=== PATIENT | male | born 1980 | race Caucasian/White ===

== ENCOUNTER → 2018-09-05 06:53 | Outpatient (CLI) | payer MEDICARE, MEDICAID, SELFPAY ==
--- NOTE | 2018-09-05 06:55 | NM_ITS ---
CARDIOLITE SPECT MYOCARDIAL PERFUSION SCAN, REST AND STRESS: EXERCISE STRESS [facility] REVIEW QGS EF AND WALL MOTION EVALUATION: QPS - PERFUSION EVALUATION HISTORY: Chest pain, SOB, HTN, CAD, Hx of PA, DM DOSE: 9.49 mCi technetium 99m mibi intravenously at rest followed by 31.9 mCi technetium 99m mibi following the intravenous ministration of 0.4 mg of Lexiscan. Resting blood pressure is 157/87. Stress blood pressure 134/88. FINDINGS: Ejection fraction is calculated to be 42%. Stress images reveal decreased activity in the apex septum and inferior wall. Rest images reveal no significant change. Gated images calculated ejection fraction of 42% with inferior apical hypokinesis. IMPRESSION: Clinical correlation is advised. This is an abnormal high risk stress test with extensive inferior apical and septal nearly complete transmural myocardial infarction with no scintigraphic evidence of reversible ischemia. Reduced ejection fraction accompanied by regional wall motion abnormality
--- NOTE | 2018-09-05 07:51 | HMH.ITSHM ---
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 []METFORMIN LISINOPRIL ZETIA INSULIN TRULICITY PLAVIX
== END ==
PROVIDERS: PCP Physician Assistant; Visit Provider Internal Medicine
DX: E11.9 Type 2 diabetes mellitus without complications (principal); I11.9 Hypertensive heart disease without heart failure; I25.10 Atherosclerotic heart disease of native coronary artery without angina pectoris; J44.9 Chronic obstructive pulmonary disease, unspecified; R06.09 Other forms of dyspnea; R42 Dizziness and giddiness; R94.31 Abnormal electrocardiogram [ECG] [EKG]; Z95.5 Presence of coronary angioplasty implant and graft; E78.49 Other hyperlipidemia
CPT/HCPCS: 78452; 93017; A9502; J2785

== ENCOUNTER → 2019-01-08 12:22 | Outpatient (CLI) | payer MEDICARE, MEDICAID, SELFPAY ==
--- NOTE | 2019-01-08 12:25 | CA_ITS ---
PROCEDURE: 2-D M-mode and color Doppler study INDICATIONS FOR THE TEST: Chest pain COPD Heart Murmur Tobacco Smoking Palpitations Fatigue Syncope Edema Hypertension+Diabetes Mellitus Rheumatic Fever SOB+HANEY Obesity Hyperlipidemia + Family History HD Additional History STENTS, LOOP RECORDER PATIENT INFORMATION HEIGHT: 72 WEIGHT:243 GENDER: Male B/P:140/81 2-D/M-MODE INTERPRETATION: 2-D MEASUREMENTS OBSERVED VALUES IN CMS Right Ventricular Dimension (RVDd) 1.9 Interventricular Septum (Thickness)(IVsd) 1.5 Left Ventricular Internal Dimensions(LVIDd) 5.2 Left Ventricular Posterior Wall (Thickness)(LVPWd) 1.0 Aortic Root 3.8 Aortic Cusp Separation 2.5 Left Atrial Dimensions (LAD) 4.1 2D 1. Left atrium is mildly enlarged, left ventricle is normal size, mild concentric left ventricular hypertrophy, visually estimated ejection fraction of 55% with no regional wall motion abnormality. 2. The right atrium and right ventricle are normal size and contractility. 3. The aortic valve is minimally thickened and fibrosed. 4. The mitral and tricuspid valvular grossly normal. 5. The pulmonic valve is poorly visualized. 6. No significant pericardial effusion noted. DOPPLER INTERROGATION: Doppler interrogation of the aortic, mitral and tricuspid valvular presence of mild mitral and tricuspid regurgitation, tricuspid regurgitation jet velocity is inadequate for calculation of the right ventricular systolic pressure, grade 1 diastolic dysfunction seen without tissue Doppler evidence of raised left atrial pressure. CONCLUSION: 1. Mildly enlarged left atrium, normal left ventricular size, mild concentric left ventricular hypertrophy, visually estimated ejection fraction 55% with no regional wall motion abnormality, grade 1 diastolic dysfunction seen without tissue Doppler evidence of raised left atrial pressure. 2. Mild mitral and tricuspid regurgitation 3. No significant pericardial effusion noted. :
== END ==
PROVIDERS: PCP Physician Assistant; Visit Provider Internal Medicine
DX: R94.31 Abnormal electrocardiogram [ECG] [EKG] (principal)
CPT/HCPCS: 93306

== ENCOUNTER → 2021-04-08 13:49 | Outpatient (CLI) | payer MEDICARE, MEDICAID, SELFPAY ==
--- NOTE | 2021-04-08 13:55 | XR_ITS ---
PROCEDURE: XR CHEST 2V CLINICAL HISTORY: PRECORDIAL PAIN COMPARISON: CR CXR1 CHEST-PORTABLE from 04/29/2016 FINDINGS: The cardiomediastinal silhouette and pulmonary vascularity are within normal limits. The lungs are clear without infiltrates, suspicious nodules, or pleural effusions. No acute bony abnormalities. Loop recorder overlying left heart again noted. IMPRESSION: No acute findings. Dictated by: Arvind Bolton MD 04/08/2021 14:42 Arvind Bolton MD in OV 04/08/2021 14:42
== END ==
PROVIDERS: PCP Nurse Practitioner Family; Visit Provider Nurse Practitioner Family
DX: R07.2 Precordial pain (principal)
CPT/HCPCS: 71046

== ENCOUNTER → 2021-08-19 10:35 | Outpatient (CLI) | payer MEDICARE, MEDICAID, SELFPAY ==
--- NOTE | 2021-08-19 10:37 | US_ITS ---
APPROVED REPORT Exam Type: Ankle to Brachial Index Procurement Agent: Ashley Barroso RCS, RVS Indications Claudication: Rest Pain: History of Smoking CAD Risk Factors Diabetes Pressures/Indices Right Indices Left Indices Brachial 126.00 mmHg Brachial 132.00 mmHg Low Thigh 126.00 mmHg 0.95 Low Thigh 131.00 mmHg 0.99 Calf 133.00 mmHg 1.01 Calf 142.00 mmHg 1.08 Ankle(PT) 145.00 mmHg 1.10 Ankle(PT) 145.00 mmHg 1.10 Ankle(DP) 144.00 mmHg 1.09 Ankle(DP) 139.00 mmHg 1.05 Digit 114.00 mmHg 0.86 Digit 112.00 mmHg 0.85 Findings RT DORON=1.10 LT DORON=1.10 RT TPI=0.86 LT TPI=0.85 Normal waveforms and pulses observed bilaterally. Conclusion RT DORON=1.10 LT DORON=1.10 RT TPI=0.86 LT TPI=0.85 Normal waveforms and pulses observed bilaterally. Electronically signed by : Jillian Hou MD 08/21/2021 17:05:11
--- NOTE | 2021-08-19 11:26 | NM_ITS ---
APPROVED REPORT Exam: Nuclear Stress Test Indication: angina..short of breath Patient Location: Outpatient Stress Tech: Terrie Valenzuela [place] Tech:Celine FernandezROSITA RT(R)(N) Ht: 6 ft 0 in Wt: 240 lbs HR: 67 bpm BP: 135/81 mmHg BSA: 2.30 m2 BMI: 67.0 History: angina..short of breath Procedure: Patient received a 0.4 mg of intravenous Lexiscan, resting heart rate 67 bpm, resting blood pressure 135/81 mmHg, with Lexiscan maximum heart rate achived was 78 bpm which is 85 % of the maximum predicted heart rate and blood pressure was 127/82 mmHg. With Lexiscan, patient denied any complaint of chest pain. pt unable to lay on belly Cardiac Stress and Resting SPECT Images: Cardiac Stress and Resting SPECT images were obtained using technetium 99m Myoview 31.1 mCi stress and 10.43 mCi at rest. Ef low at 49%. Apical hypokinesia Fixed defect involves the apex c/w an area of infarction No reversible defects evident Please correlate with ECG findings Conclusion: Ef low at 49%. Apical hypokinesia Fixed defect involves the apex c/w an area of infarction No reversible defects evident Please correlate with ECG findings Electronically signed by : Liam Russell MD 08/25/2021 15:43:03
--- NOTE | 2021-08-19 13:54 | HMH.ITSHM ---
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 []NITRO METFORMIN INSULIN GLIPIZIDE EZETIMIBE CLOPIDOGREL BISOPROLOL ASA
--- NOTE | 2021-08-19 14:37 | CA_ITS ---
APPROVED REPORT Exam: Pharmacologic Technologist: Terrie Valenzuela, Ht: 6 ft 0 in Wt: 242 lbs BSA: 2.31 m2 HR: 67 bpm BP: 135/81 mmHg Medical History Medications: Aspirin,,,,, Metformin,,,,, CloPIdogrel,,,,, BisOPROLOL Fumarate,,,,, LanTUS,,,,, Nitroglycerin,,,,, Novalog,,,,, Ezetimibe,,,,, GIipizide,,,,, Stress Test Details Test: LEXISCAN HR Resting HR: 67 bpm Max Heart Rate (APMHR): 179.820136 bpm Max HR Achieved: 91 bpm Target HR (85% APMHR): 152.016095 bpm % of APMHR: 50.84 Recovery HR: 71 bpm BP Resting BP: 135/81 mmHg Max BP: 135/81 mmHg Recovery BP: 127.0/86.0 mmHg ECG Resting ECG: NSR, old anteroseptal [place], low voltage QRS Clinical Exercise duration: 04:00 min Highest Stage Achieved: Exercise capacity: 1.0 METs Stress ECG Conclusion Symptoms: Very mild SOA and stomach discomfort. No CP. Arrhythmias/Ectopy: None ST-T Changes: No significant changes. Conclusion: Unremarkable Lexiscan stress. Myoview images reported separately. Test Summary REST . . . . . . . Resting REST 03:13 . . 67 . 135/ 81 . . Stage 1 . . . . . . . Cardiolite injected Stage 1 01:00 . . 90 . . . . Stage 2 01:00 . . 73 . 127/ 82 . . Stage 3 01:00 . . 72 . 125/ 80 . . Stage 4 01:00 . . 71 . 124/ 81 . Stop exercise at 04:00 RECOVERY 01:00 . . 69 . 123/ 88 . . RECOVERY 02:00 . . 73 . 123/ 88 . . RECOVERY 03:00 . . 71 . 127/ 86 . . RECOVERY 03:19 . . 70 . 127/ 86 . . Electronically signed by : David Isbell MD 08/21/2021 14:26:37
== END ==
PROVIDERS: PCP Nurse Practitioner Family; Visit Provider Nurse Practitioner Family
DX: E11.9 Type 2 diabetes mellitus without complications (principal); E78.5 Hyperlipidemia, unspecified; I11.9 Hypertensive heart disease without heart failure; I73.9 Peripheral vascular disease, unspecified; J44.9 Chronic obstructive pulmonary disease, unspecified; Z95.5 Presence of coronary angioplasty implant and graft; Z79.4 Long term (current) use of insulin; I20.8 Other forms of angina pectoris; R06.02 Shortness of breath
CPT/HCPCS: 78452; 93017; 93306; 93923; A9502; J2785

== ENCOUNTER → 2021-08-26 12:35 | Outpatient (CLI) | payer MEDICARE, MEDICAID, SELFPAY ==
[2021-08-26 13:07] LABS: Basophils # 0.1 K/mm3 (0-0.2); Basophils % 1.4 % (0.1-2.0); Eosinophils # 0.1 K/mm3 (0.0-0.4); Eosinophils % 1.7 % (0.1-12.0); Hematocrit 50.5 % (42.0-52.0); Hemoglobin 17.3 g/dL (14.1-18.0); Lymphocytes # 2.7 K/mm3 (0.7-4.5); Lymphocytes % 34.4 % (10-50); Mean Corpuscular HGB Conc 34.3 g/dL (31.8-35.4); Mean Corpuscular Hemoglobin 31.4 pg (27.0-31.2); Mean Corpuscular Volume 91.7 fl (80-94); Mean Platelet Volume 8.3 fl (7.4-10.4); Monocytes # 0.4 K/mm3 (0.1-1.0); Monocytes % 4.6 % (1.7-9.3); Neutrophils # 4.6 K/mm3 (1.8-7.8); Neutrophils % 57.9 % (37.0-80.0); Platelet Count 360 K/mm3 (142-424); Red Blood Count 5.51 M/mm3 (4.60-6.20); Red Cell Distribution Width 13.1 % (11.5-17.5); White Blood Count 7.9 K/mm3 (4.8-10.8)
[2021-08-26 14:54] LABS: Chloride 99 mmol/L (98-107); Sodium 136 mmol/L (136-145)
[2021-08-26 14:57] LABS: Blood Urea Nitrogen 11 mg/dl (9-20); Carbon Dioxide 25 mmol/L (22.0-30.0); Estimated Glomerular Filt Rate 124 ml/min (>60); GFR (African American) 150 ML/MIN (>60); Glucose 371 mg/dl (74-100)
== END ==
PROVIDERS: Visit Provider Urology
DX: I65.29 Occlusion and stenosis of unspecified carotid artery (principal); I11.9 Hypertensive heart disease without heart failure; I25.10 Atherosclerotic heart disease of native coronary artery without angina pectoris; R07.9 Chest pain, unspecified; Z01.812 Encounter for preprocedural laboratory examination; Z11.52 Encounter for screening for COVID-19
CPT/HCPCS: 36415; 80048; 85025; C9803; U0003; U0005

== ENCOUNTER 2021-08-27 08:49 | Day surgery (SDC) | payer MEDICARE, MEDICAID, SELFPAY ==
[2021-08-27] VITALS (11 sets, daily range): BP systolic 109–144; BP diastolic 64–91; PULSE 61–75; RESP 18–20; TEMP 36.3; O2SAT 94–98; BMI 33.5
--- NOTE | 2021-08-27 07:02 | IR_ITS ---
APPROVED REPORT Patient Location: Outpatient Meat Cutting Teacher: ROSITA Reyes RT (R) PROCEDURES Left heart catheterization Left ventriculogram Selective coronary angiogram INDICATION Known multivessel coronary disease, Poorly controlled diabetes with a hemoglobin A1c in excess of 12, Symptoms suggestive of angina pectoris, Abnormal Myoview Informed consent was obtained prior to the procedure. COMPLICATIONS None Estimated Blood Loss: less than 10ml TECHNIQUE One percent lidocaine used to anesthetize the right anterior aspect of the wrist. The right radial artery was accessed via the Seldinger technique. A 6 Bulgarian sheath was placed in the right radial artery. 2.5 mg of verapamil, 800 mcg of nitroglycerin, 1mg Lidocaine and 5000 U Heparin were given through the arterial sheath. The trap catheter and a 6 Bulgarian JL 3 guide catheter were also used to perform left heart catheterization, left ventriculogram and selective coronary angiogram. At the end of the procedure the sheath was removed good hemostasis was achieved using Traclet band, patient was transferred to the postop holding area in stable condition. ANGIOGRAPHIC RESULTS The left main artery Normal The left anterior descending artery Has a stent in the proximal segment which is widely patent with mild concentric 30% proximal in-stent restenosis with remaining LAD having diffuse 20% luminal irregularities. The circumflex artery Gives rise to a moderate sized ramus intermedius which has an ostial proximal 80% concentric stenosis and a 2 mm vessel. This originates immediately in between the LAD and a second moderate to large ramus intermedius branch. The second ramus intermedius has a stent in the ostial proximal segment which is widely patent with minimal in-stent restenosis approximately 10 to 20%. The circumflex artery itself is nondominant is a small vessel and patent. The right coronary artery Is a dominant vessel and proximally occluded. The distal segment fills via left to right collaterals The SUN ventriculogram reveals Preserved at 60% The left ventricular end-diastolic pressure 10 mmHg IMPRESSION Coronary artery disease as described above Preserved ejection fraction Normal left ventricular end-diastolic pressure PLAN 1. Continue medical management with aggressive risk factor modification with special attention being paid to diabetes Electronically signed by : David Isbell MD 08/27/2021 11:18:52
== END 2021-08-27 13:57 | disposition home or self-care (01) ==
LOC: CATHLAB 08:50
PROVIDERS: PCP Nurse Practitioner; Visit Provider Internal Medicine
DX: I25.10 Atherosclerotic heart disease of native coronary artery without angina pectoris; R93.1 Abnormal findings on diagnostic imaging of heart and coronary circulation; E11.65 Type 2 diabetes mellitus with hyperglycemia; I65.29 Occlusion and stenosis of unspecified carotid artery; E11.51 Type 2 diabetes mellitus with diabetic peripheral angiopathy without gangrene; I10 Essential (primary) hypertension; T82.855A Stenosis of coronary artery stent, initial encounter; F17.200 Nicotine dependence, unspecified, uncomplicated; E78.5 Hyperlipidemia, unspecified; I25.2 Old myocardial infarction; Y83.1 Surgical operation with implant of artificial internal device as the cause of abnormal reaction of the patient, or of later complication, without mention of misadventure at the time of the procedure; Z79.4 Long term (current) use of insulin
CPT/HCPCS: 93458; 99152; C1725; C1769; J1644; Q9967

== ENCOUNTER 2023-02-19 20:05 | Emergency (ER) | payer MEDICARE, MEDICAID, SELFPAY ==
[2023-02-19 20:06] VITALS: BP 168/89; PULSE 96; RESP 16; TEMP 36.5; O2SAT 98; BMI 31.6
--- NOTE | 2023-02-19 20:25 | ECG_ITS ---
APPROVED REPORT Exam: Resting ECG HR:93 bpm ECG Measurements Heart Rate 93 AXES NJ 168 P 66 QRSd 86 QRS 71 QT 345 T 62 QTc 396 Conclusion SINUS RHYTHM Poor r wave progression with isolated Q in III. Old findings ABNORMAL ECG UNCONFIRMED REPORT Electronically signed by : Francisco Rubin MD 02/20/2023 13:38:36
--- NOTE | 2023-02-19 20:26 | XR_ITS ---
PROCEDURE INFORMATION: Exam: XR Chest Exam date and time: 02/19/2023 8:42 PM Age: 42 years old Clinical indication: Shortness of breath; Additional info: SOB TECHNIQUE: Imaging protocol: Radiologic exam of the chest. Views: 1 view. COMPARISON: CR XR CHEST 2V 04/08/2021 1:58 PM FINDINGS: Lungs: No consolidation. Pleural spaces: No pneumothorax. Heart/Mediastinum: No cardiomegaly. Bones/joints: No acute abnormality. IMPRESSION: No acute findings.
[2023-02-19 20:29] LABS: Coronavirus 19, PCR Not Detected (NotDetected); Influenza A, PCR Not Detected (NotDetected); Influenza B, PCR Not Detected (NotDetected)
--- NOTE | 2023-02-19 20:29 | PC.NURSE ---
RAD at for CXR
[2023-02-19 20:30] VITALS: BP 139/81; PULSE 99; O2SAT 98
--- NOTE | 2023-02-19 20:30 | HMH.EDGENADL ---
Discharge Plan Disposition Patient Disposition: Home, Self-Care Condition: Good Chief Complaint: Shortness of Breath/Dyspnea Prescriptions Prescriptions: No Action insulin glargine [Lantus U-100 Insulin] 100 unit/mL solution 50 unit SUB-Q BID insulin aspart U-100 [Novolog U-100 Insulin aspart] 100 unit/mL solution 10 unit SUB-Q QPM metformin 1,000 mg tablet 1,000 mg PO BID glipizide [Glucotrol] 10 mg tablet 10 mg PO DAILY nitroglycerin 0.4 mg tablet, sublingual 0.4 mg SUBLINGUAL Q5M PRN (Reason: chest pain) Qty: 25 3RF Rx Instructions: until response; do not exceed 3 doses per episode gabapentin 300 mg capsule 300 mg PO HS fenofibrate 160 mg tablet 160 mg PO DAILY bisoprolol fumarate 5 mg tablet 5 mg PO DAILY Qty: 30 5RF clopidogrel 75 mg tablet 75 mg PO QDAY Qty: 90 3RF Nexlizet 180-10 mg tablet 1 tab PO DAILY Qty: 30 2RF Referrals Follow up/Referrals: Gaviota Robbins [Primary Care Provider] - See instructions Clinical Impressions Clinical Impression: Chronic hyperglycemia Discharge ED Provider: Florencio Elmore General Adult HPI General Chief complaint: Shortness of Breath/Dyspnea Stated complaint: SOA , bodyaches, Possible low oxygen Time Seen by Provider: 02/19/23 20:18 Mode of Arrival: Ambulatory Source of Information: Patient Limitations: No Limitations Description of Symptoms (Recalled from ER Triage Doc. by RN): Pt arrives to ED with c/o sob for 2-3 days. denies any pain besdies his baseline neuropathy tingling . Pt o2 sats in 90's on room air. Pt has hx of COPD. History of Present Illness HPI narrative: 42yo M presents to the ER secondary to shortness of breath for the past 2 to 3 days. Denies chest pain. Reports his O2 saturation has been dropping at home. Reports O2 sat as low as 92%. Quit smoking 5 years ago. Has a history of COPD and CAD. No recent fever. Related Data Home Medications Medication Instructions Recorded Confirmed insulin aspart U-100 100 unit/mL 10 unit SUB-Q QPM Diabetes 11/07/17 02/03/23 subcutaneous solution (Novolog U-100 Insulin aspart) insulin glargine 100 unit/mL 50 unit SUB-Q BID Diabetes 11/07/17 02/03/23 subcutaneous solution (Lantus U-100 Insulin) metformin 1,000 mg tablet 1,000 mg PO BID Diabetes 06/27/18 02/03/23 glipizide 10 mg tablet (Glucotrol) 10 mg PO DAILY Diabetes 12/26/18 02/03/23 fenofibrate 160 mg tablet 160 mg PO DAILY 02/03/23 02/03/23 gabapentin 300 mg capsule 300 mg PO HS 02/03/23 02/03/23 Previous Rx's Medication Instructions Recorded nitroglycerin 0.4 mg sublingual 0.4 mg sublingual Q5M PRN chest 12/25/19 tablet pain #25 tabs bempedoic acid 180 mg-ezetimibe 10 1 tab PO DAILY #30 tabs 02/03/23 mg tablet (Nexlizet) bisoprolol fumarate 5 mg tablet 5 mg PO DAILY blood pressure #30 02/03/23 tabs clopidogrel 75 mg tablet 75 mg PO QDAY heart #90 tabs 02/03/23 Allergies Allergy/AdvReac Type Severity Reaction Status Date / Time ramelteon [From Rozerem] Allergy Severe Trouble Verified 02/03/23 09:23 breathing morphine Allergy Unknown itching Verified 02/03/23 09:23 evolocumab AdvReac Mild myalgia Verified 02/03/23 09:23 [From Joe Christina] Lhckyod-WRR-AiA Reductase AdvReac Mild leg cramps Verified 02/03/23 09:23 Inhibitor [Qhnikec-Pia-Rwn Reductase Inhibitor] pregabalin [From Lyrica] AdvReac Verified 02/03/23 09:23 [facility] Disclaimer: The information contained in this section may have been updated after the patient was seen, as this information can be updated by other users. Medical History Carotid artery stenosis Social History Smoking Status: Former smoker second hand exposure: No alcohol intake: never substance use type: denies use current occupational status: unemployed Travel in the last 8 weeks: In
[2023-02-19 20:35] LABS: Basophils # 0.1 K/mm3 (0-0.2); Chloride 92 mmol/L (98-107); Eosinophils # 0.1 K/mm3 (0.0-0.4); Eosinophils % 1.2 % (0.1-12.0); Hematocrit 45.7 % (42.0-52.0); Hemoglobin 15.4 g/dL (14.1-18.0); Lymphocytes # 1.6 K/mm3 (0.7-4.5); Mean Corpuscular HGB Conc 33.7 g/dL (31.8-35.4); Mean Platelet Volume 8.5 fl (7.4-10.4); Monocytes # 0.3 K/mm3 (0.1-1.0); Monocytes % 4.8 % (1.7-9.3); Neutrophils # 4.4 K/mm3 (1.8-7.8); Neutrophils % 68.2 % (37.0-80.0); Platelet Count 289 K/mm3 (142-424); Potassium 3.8 mmoL/L (3.5-5.1); Red Blood Count 5.14 M/mm3 (4.60-6.20); Red Cell Distribution Width 13.3 % (11.5-17.5); Sodium 134 mmol/L (136-145); White Blood Count 6.4 K/mm3 (4.8-10.8)
[2023-02-19 20:37] LABS: Blood Urea Nitrogen 10 mg/dl (9-20); Creatinine Clearance Estimated 206 mL/min (50-200); Estimated Glomerular Filt Rate 124 ml/min (>60); GFR (African American) 150 ML/MIN (>60)
[2023-02-19 20:38] LABS: Alanine Aminotransferase 32 U/L (12-78); Albumin Level 4.5 g/dl (3.5-5.0); Albumin/Globulin Ratio 1.5 (1.1-1.8); Alkaline Phosphatase 102 U/L (38-126); Anion Gap 18.8 mEq/L (5-15); Aspartate Amino Transferase 27 U/L (17-59); Bilirubin,Total 0.6 mg/dl (0.2-1.3); Calcium 9.1 mg/dl (8.4-10.2); Carbon Dioxide 27 mmol/L (22.0-30.0); Glucose 311 mg/dl (74-100); Total Protein,Serum 7.5 g/dl (6.3-8.2)
[2023-02-19 20:51] LABS: Troponin I < 0.01 ng/ml (0.00-0.034)
[2023-02-19 20:53] LABS: NT Pro Brain Natriuretic Pep. < 20.0 pg/mL (0-125)
[2023-02-19 21:00] VITALS: BP 134/77; PULSE 90; O2SAT 98
--- NOTE | 2023-02-19 21:18 | PC.NURSE ---
Rounded on pt. No needs or complaints voiced at this time.
[2023-02-19 21:30] VITALS: BP 143/79; PULSE 91; RESP 16; O2SAT 98
[2023-02-19 21:53] VITALS: BP 140/70; PULSE 79; RESP 18; TEMP 36.7; O2SAT 97
== END 2023-02-19 22:08 | disposition home or self-care (01) ==
PROVIDERS: Emergency Provider Family Medicine; PCP Nurse Practitioner Family
DX: R06.02 Shortness of breath (principal); Z87.891 Personal history of nicotine dependence
CPT/HCPCS: 71045; 80053; 83880; 84484; 85025; 93005; 96360; 99285; C9803; U0003; U0005

== ENCOUNTER → 2023-08-30 07:41 | Outpatient (CLI) | payer MEDICARE, MEDICAID, SELFPAY ==
--- NOTE | 2023-08-30 07:42 | CA_ITS ---
APPROVED REPORT EXAM: Comprehensive 2D, Doppler, and color-flow Echocardiogram Backfiller: Leatha Horton RVT Ht: 6 ft 0 in Wt: 232lbs BSA: 2.27 BP: 173/86 mmHg Indications: CAD,PRE-OP,ABN EKG,DM,COPD,HTN,HLD 2D Dimensions LVOT 2.27 cm (M/F) 1.5-2.5 LA Volume 48.80 mL LA Volume Index 21.50 mL/m2 (M/F) 16-34 M-Mode Dimensions RVDd 2.88 cm (0.9-2.6) LA Diam 4.06 cm (1.9-4.0) LVDd 5.49 cm (3.5-5.7) Ao Diam 3.45 cm (2.0-3.7) LVDs 3.80 cm (3.5-5.7) IVSd 0.92 cm (0.6-1.1) PWd 0.52 cm (0.6-1.1) EF (Teich) 57.80% FS 30.80% EDV (Teich) 146.80 mL TAPSE 2.26 (<1.7) ESV (Teich) 62.00 mL LV Diastology E Decel Time 163.00 (160-240 msec) E/A Ratio 0.9 MED E' 7.80 (< 7 cm/sec) E'/MED E' Ratio 9.13 (>14) LAT E' 8.90 (<10 cm/sec) E/LAT E' Ratio 8.00 (>14) Aortic Valve LVOT Max 94.00 (70-110 cm/s) LVOT VTI 18.38 cm AoV Peak Gilberto. 100.00 (50-130 cm/s) AO Peak GR. 4.00 mmHg AO Mean GR. 2.00 (<5 mmHg) AO VTI 17.70 (18-25 cm) QUIANA (VTI) 4.20 (2.5-4.5 cm2) Mitral Valve MV E Max Gilberto. 71.00 (40-130 cm/s) MV A Velocity 80.00 (40-130 cm/s) E/A Ratio 0.89 MV Decel. Time 163.00 (160-240 ms) MV PHT 48.00 ms Pulmonary Valve PV Peak Velocity 79.00 (50-150 cm/s) Left Ventricle The left ventricle is normal size. The left ventricular systolic function is normal. The left ventricular ejection fraction is within the normal range. There is normal left ventricular wall thickness. There is normal LV segmental wall motion. The left ventricular diastolic function is normal. LVEF is 55%. Right Ventricle The right ventricle is normal size. The right ventricular systolic function is normal. Atria The left atrium size is normal. The right atrium size is normal. There is no Doppler evidence of interatrial shunt. Aortic Valve The aortic valve opens well. There is no aortic valvular stenosis. No aortic regurgitation is present. Mitral Valve The mitral valve is normal in structure. No evidence of mitral valve stenosis. Trace mitral regurgitation. Tricuspid Valve Leaflets are thin and pliable. Trace tricuspid regurgitation. There is insufficient TR jet to estimate RVSP. Pulmonic Valve The pulmonary valve is normal in structure. Trace pulmonic regurgitation. Great Vessels The aortic root is normal in size. The ascending aorta is normal in size. IVC is normal in size and collapses >50% with inspiration. Pericardium There is no pericardial effusion. Other Information Study Quality: Fair Conclusion Normal biventricular systolic function. No significant valvular stenosis or regurgitation. Electronically signed by : Luanne Wilson MD 08/31/2023 12:01:19
== END ==
PROVIDERS: PCP Nurse Practitioner Family; Visit Provider Physician Assistant
DX: E11.9 Type 2 diabetes mellitus without complications (principal); E78.5 Hyperlipidemia, unspecified; I11.9 Hypertensive heart disease without heart failure; I25.10 Atherosclerotic heart disease of native coronary artery without angina pectoris; R94.31 Abnormal electrocardiogram [ECG] [EKG]; Z95.5 Presence of coronary angioplasty implant and graft
CPT/HCPCS: 93306

== ENCOUNTER → 2023-09-09 10:23 | Outpatient (CLI) | payer MEDICARE, MEDICAID, SELFPAY ==
[2023-09-09 10:29] LABS: Microscopic, Urine URINE MICROSCOPIC (MICROSCOPIC)
[2023-09-09 10:53] LABS: Basophils # 0.1 K/mm3 (0-0.2); Eosinophils # 0.2 K/mm3 (0.0-0.4); Eosinophils % 2.9 % (0.1-12.0); Hematocrit 45.6 % (42.0-52.0); Lymphocytes # 2.8 K/mm3 (0.7-4.5); Lymphocytes % 36.9 % (10-50); Mean Corpuscular HGB Conc 35.1 g/dL (31.8-35.4); Mean Corpuscular Hemoglobin 30.4 pg (27.0-31.2); Mean Corpuscular Volume 86.7 fl (80-94); Mean Platelet Volume 8.1 fl (7.4-10.4); Monocytes # 0.3 K/mm3 (0.1-1.0); Monocytes % 3.4 % (1.7-9.3); Neutrophils # 4.2 K/mm3 (1.8-7.8); Neutrophils % 55.7 % (37.0-80.0); Platelet Count 289 K/mm3 (142-424); Red Blood Count 5.27 M/mm3 (4.60-6.20); Red Cell Distribution Width 13.1 % (11.5-17.5); White Blood Count 7.6 K/mm3 (4.8-10.8)
[2023-09-09 11:56] LABS: Anion Gap 16.5 mEq/L (5-15); Appearance,Urine CLEAR (Clear); Bilirubin,Urine Negative (Negative); Blood Urea Nitrogen 14 mg/dl (9-20); Blood, Urine Negative (Negative); Calcium 9.5 mg/dl (8.4-10.2); Carbon Dioxide 25 mmol/L (22.0-30.0); Chloride 94 mmol/L (98-107); Color,Urine YELLOW (Yellow); Estimated Glomerular Filt Rate 92 ml/min (>60); GFR (African American) 111 ML/MIN (>60); Glucose,Urine (UA) 3+ (Negative); Ketones,Urine Negative (Negative); Leukocyte Esterase,Urine Negative (Negative); Nitrate,Urine Negative (Negative); Potassium 4.5 mmoL/L (3.5-5.1); Protein,Urine Negative (Negative); Sodium 131 mmol/L (136-145); Urobilinogen,Urine 0.2 EU/dl (0.2)
[2023-09-09 12:06] LABS: Glucose 466 mg/dl (74-100)
[2023-09-09 13:44] LABS: Squamous Epithelial Cell,Urine Occasional #/hpf (0-5); WBC,Urine Occasional #/hpf (0-3)
[2023-09-09 13:45] LABS: Bacteria,Urine Trace /lpf
== END ==
PROVIDERS: PCP Nurse Practitioner Family; Visit Provider Surgery
DX: I25.10 Atherosclerotic heart disease of native coronary artery without angina pectoris (principal); K40.90 Unilateral inguinal hernia, without obstruction or gangrene, not specified as recurrent
CPT/HCPCS: 36415; 80048; 81001; 85025

== ENCOUNTER 2023-09-29 08:50 | Day surgery (SDC) | payer MEDICARE, MEDICAID, SELFPAY ==
[2023-09-27 14:28] VITALS: BMI 31.6
[2023-09-29] VITALS (8 sets, daily range): BP systolic 143–168; BP diastolic 78–99; PULSE 87–98; RESP 16–20; TEMP 36.1–36.7; O2SAT 94–98
[2023-09-29 09:47] LABS: POC Glucose,Bedside 325 (70-110)
[2023-09-29 10:34] LABS: POC Glucose,Bedside 291 (70-110)
--- NOTE | 2023-09-29 10:40 | P.PNANES_ITS ---
[facility] Disclaimer: The information contained in this section may have been updated after the patient was seen, as this information can be updated by other users. Medical History (Updated 09/29/23 @ 09:44 by Jan Kim RN) Carotid artery stenosis Diabetes mellitus Hyperlipidemia Hypertensive heart disease Implantable loop recorder present Implantable loop recorder present Surgical History (Updated 09/29/23 @ 09:44 by Jan Kim RN) H/O heart artery stent History of dental surgery Family History Other Family history of COPD (chronic obstructive pulmonary disease) Family history of myocardial infarction Social History Smoking Status: Former smoker tobacco type: smokeless tobacco second hand exposure: No alcohol intake: never substance use type: denies use current occupational status: unemployed Travel in the last 8 weeks: Inside the [facility] household members: spouse and children housing: house current occupational exposures/hazards: No caffeine: Yes [facility] Anesthesia Checklist Patient Identification Patient Identification: Arm Band Structural Data Admitted From: Home Planned Operative Procedure/s: Open Right Inguinal Hernia Repair Consent for Planned Operative Procedure(s) Verified: Yes Verified Documents: Surgical Consent and History and Physical NPO Status Verified Time NPO: 00:00 Additional verifications Anesthesia Reactions: No Hx Blood Transfusions: No Blood Transfusion Reaction: No Airway Assessment Mallampati Score:: Class II C-Spine Mobility Assessed: Yes TMJ Mobility Assessed: Yes Dentition: Edentulous Neurological Assessment Level of Consciousness: Awake and Alert Anesthesia Plan Anesthesia Risk discussed: Yes Anesthesia Plan: Verified ASA Class: III Anesthesia Type: General Preoperative Comments Pre-Operative Comments: Discussed blood glucose control and risk of infection with patient, especially with using mesh for hernia repair. Pt is no longer taking insulin. Pt verbalized understanding of risks and wishes to proceed with surgery.
--- NOTE | 2023-09-29 12:55 | EXP.OP.NOTE ---
Date of procedure: 09/29/23 Pre-op Diagnosis:: Right inguinal hernia Post-op Diagnosis:: Same Procedure performed:: Open right inguinal hernia repair Surgeon:: Ramiro Cole MD Anesthesia: LMA Estimated blood loss (mL): 15 Operative findings:: Large direct defect Operative note:: After informed consent was obtained the patient was taken to the operating room and placed in the supine position. General anesthesia was induced and his abdomen and groin/scrotum were prepped and draped in a sterile fashion. After infiltration with local anesthetic an oblique right groin incision was made. Electrocautery was utilized to transect through Yamilka's fascia to the level of the external aponeurosis. The external aponeurosis was opened sharply to the level of the external ring. The contents of the canal were carefully elevated. Significant soft tissue stranding noted. No definitive indirect defect noted. A fairly large direct defect was encountered. An extra-large PerFix plug was secured in position with interrupted Ethibond. The PerFix overlay was then secured to the shelving edge inferiorly and fascial margin superiorly with interrupted Ethibond. The external aponeurosis was reapproximated with running Vicryl suture. Yamilka's fascia was closed in the same manner. Skin was then reapproximated with running 3-0 Monocryl STRATAFIX. Sterile dressings were applied and the patient was transferred to recovery in stable condition. Condition: stable Disposition: PACU Specimens:: none Complications:: No immediate
--- NOTE | 2023-09-29 13:11 | P.PNANES_ITS ---
[facility] Anesthesia Record Part I Anesthesia Record I Intake, IV Amount: 1,250 Hydration: Adequate Estimated blood loss (mL): 25 Urine output (mL): 500 Blood Products used (#): none Blood Pressure: 148/90 SaO2: 94 Pulse Rate: 96 Airway Patency: Patent Respiratory Rate: 16 Temperature: 97.0 F Patient is:: Awake (Talking) and Stable Stable to PACU at:: 13:05
--- NOTE | 2023-09-29 13:11 | SUR.OPER ---
urinary catheter was removed at 1257 pm. No issues noted and urine output was about 500ml of pale, yellow, normal urine.
[2023-09-29 13:17] LABS: POC Glucose,Bedside 286 (70-110)
--- NOTE | 2023-09-30 13:58 | EXP.ANES.II ---
[facility] Anesthesia Record Part II Anesthesia Record Part II Discharge Time: 13:30 Destination: Surgical Day Care (OP Surgery) PACU nurse assessment reviewed?: Yes Patient Condition:: Good Anesthesia Complications:: None Swallowing reflex intact?: Yes Airway Patency: Patent Cyanosis?: No Blood Pressure: 162/88 SaO2: 95 Respiratory Rate: 18 Pulse Rate: 94 Temperature: 97.8 F Mental Status: Alert & Oriented Pain level:: 0 Nausea and/or vomitting:: None Intake, IV Amount: 0 Hydration: Adequate
[2023-09-30 13:59] VITALS: BP 162/88; PULSE 94; RESP 18; TEMP 36.6; O2SAT 95
== END 2023-09-29 14:00 | disposition home or self-care (01) ==
PROVIDERS: PCP Nurse Practitioner Family; Visit Provider Surgery
PROC: (CPT 49505; principal; 2023-09-29 11:00)
DX: K40.90 Unilateral inguinal hernia, without obstruction or gangrene, not specified as recurrent (principal); E11.9 Type 2 diabetes mellitus without complications
CPT/HCPCS: 49505; 82962; 87086; 96374; J2405

== ENCOUNTER 2024-04-24 15:15 | Outpatient (CLI) | payer MEDICARE, MEDICAID, SELFPAY ==
--- NOTE | 2024-04-24 15:26 | MR_ITS ---
FINAL REPORT CLINICAL HISTORY: LUMBAR RADICULOPATHY FINDINGS: Multiplanar MR imaging of the lumbar spine was performed without contrast. On the sagittal T2-weighted images, disc degeneration is seen at L4-5. The vertebral alignment is normal. There is no evidence of fracture. No bony mass is identified. The conus has an unremarkable appearance. T12-L1: Unremarkable. L1-2: An annular bulge is present. There is no significant canal stenosis or neural foraminal narrowing. L2-3: An annular bulge is present. There is no significant canal stenosis or neural foraminal narrowing. L3-4: An annular bulge is present. There is no significant canal stenosis or neural foraminal narrowing. L4-5: An annular bulge is present. A small left paracentral disc protrusion indents the thecal sac and causes left L5 nerve root impingement. Mild right and moderate left neural foraminal narrowing is seen. L5-S1: There is partial sacralization of L5. There is no significant canal stenosis or neural foraminal narrowing. IMPRESSION: Multilevel degenerative disc disease and spondylosis as described. Left paracentral L4-5 disc protrusion with left L5 nerve root impingement and moderate left neural foraminal narrowing. Authenticated and [facility]
== END 2024-04-24 23:59 | disposition home or self-care (01) ==
LOC: RAD 15:16
PROVIDERS: PCP Nurse Practitioner Family; Visit Provider Psychiatry & Neurology Neurology
DX: M54.16 Radiculopathy, lumbar region (principal)
CPT/HCPCS: 72148

== ENCOUNTER 2024-06-28 10:51 | Outpatient (CLI) | payer MEDICARE, MEDICAID, SELFPAY ==
--- NOTE | 2024-06-28 10:59 | XR_ITS ---
FINAL REPORT CLINICAL HISTORY: right elbow pain FINDINGS: Four views of the right elbow were obtained. There is no acute fracture or dislocation. The joint spaces are intact. There is not soft tissue abnormality. IMPRESSION: No acute fracture Reviewed, Interpreted and Dictated by Morro Larry III, MD Transcribed by Marybeth Pugh Authenticated and [facility]
--- NOTE | 2024-06-28 10:59 | XR_ITS ---
FINAL REPORT CLINICAL HISTORY: left elbow pain FINDINGS: Four views of the left elbow were obtained. There is no acute fracture or dislocation. The joint spaces are intact. There is not soft tissue abnormality. IMPRESSION: No acute fracture Reviewed, Interpreted and Dictated by Morro Larry III, MD Transcribed by Marybeth Pugh Authenticated and [facility]
== END 2024-06-28 23:59 | disposition home or self-care (01) ==
LOC: RAD 10:53
PROVIDERS: PCP Nurse Practitioner Family; Visit Provider Orthopaedic Surgery
DX: M25.521 Pain in right elbow (principal); M25.522 Pain in left elbow
CPT/HCPCS: 73080

== ENCOUNTER 2024-09-03 10:41 | Outpatient (POV) | payer MEDICARE, MEDICAID, SELFPAY ==
--- NOTE | 2024-09-03 10:43 | EXP.PAIN.OV ---
HPI Data of Consult Patient: new to practice Consult date: 09/03/24 Requesting Physician: Camryn Stout APRN Primary Care Provider: Gaviota Robbins Consult Narrative Reason for consult: Low back pain, bilateral leg pain History of present illness: Mr. Eckert is a 44 year old male who presents today as a new patient. He is a referral from Gaviota Robbins's office. Today he rates his pain a 5 out of 10. Patient states he has chronic pain throughout his low back but denies have burning tingling sensations that go down his lower extremities. He states this been going on for years unrelated to any specific trauma or injury. Patient does state he has tried oral medications along with heat and ice and topicals with minimal relief. Patient is in physical therapy currently however has only had his initial evaluation and is scheduled to go back for his second appointment this week. Patient has tried at home exercising and stretching for longer than 12 weeks with no additional improvement. Patient does state the pain is worse with prolonged standing or laying in it frequently he has to change positions multiple times in order to get some relief. Patient denies any prior surgery or injection history. He is interested in any help we may be able to provide. Patient is currently managed with gabapentin 600 mg twice a day. Outside provider. His Edmar has been reviewed and is appropriate. CC: Camryn Stout APRN [facility] Disclaimer: The information contained in this section may have been updated after the patient was seen, as this information can be updated by other users. Medical History Implantable loop recorder present Implantable loop recorder present Right inguinal hernia Carotid artery stenosis Diabetes mellitus Hypertensive heart disease Hyperlipidemia Surgical History History of hernia surgery History of dental surgery H/O heart artery stent Family History Other Family history of COPD (chronic obstructive pulmonary disease) Family history of myocardial infarction Social History (Updated 09/03/24 @ 11:35 by Deb Box RN) Smoking Status: Former smoker tobacco type: smokeless tobacco second hand exposure: No alcohol intake: never substance use type: denies use current occupational status: unemployed Travel in the last 8 weeks: Inside the [place] household members: spouse and children housing: house current occupational exposures/hazards: No caffeine: Yes Review of Systems Review of Systems Review of systems:: pertinent systems reviewed and negative unless documented below Review of systems (narrative): Review of Systems: General: No recent weight changes, no fever, no sleep disturbances Respiratory: No cough, no shortness of air, no recurring pulmonary infections Cardiovascular/peripheral vascular: No chest pain, no palpitations, no edema, no shortness of breath Gastrointestinal: No new onset incontinence, normal bowel movements reported Genitourinary: No new onset incontinence Musculoskeletal: Low back pain, bilateral leg pain Psychiatric: [Normal mood/affect] Neurological: [Denies weakness in extremities], [denies balance issues] Meds Home Medications and Allergies Home Medications ?Medication ?Instructions ?Recorded ?Confirmed ?Type aspirin 81 mg tablet,delayed 81 mg PO DAILY #30 tabs 08/16/23 07/05/24 Rx release sildenafil 100 mg tablet 100 mg PO NEEDED PRN * 09/09/23 07/05/24 History ezetimibe 10 mg tablet 10 mg PO 11/23/23 07/05/24 History insulin glargine 100 unit/mL (3 unit SQ 11/23/23 07/05/24 History mL) subcutaneous pen (Lantus Solostar U-100 Insulin) empagliflozin 25 mg tablet 25 mg PO DAILY 02/07/24 07/05/24 History (Jardiance) gabapentin 600 mg tablet 600 mg PO HS 02/07/24 07/05/24 History semaglutide 1 mg/dose (4 mg/3 mL) 1 mg SQ QWEEK 07/05/24 07/05/24 History subcutaneous pen injector (Ozempic) New Prescriptions to Start Prescriptions: Allergies Allergy/AdvReac Type Severity Reaction Status Date / Time ramelteon [From Rozerem] Allergy Severe Trouble Verified 07/05/24 13:39 breathing morphine Allergy Unknown itching Verified 07/05/24 13:39 evolocumab AdvReac Mild myalgia Verified 07/05/24 13:39 [From Joe Christina] Stvtamc-EMG-UiN Reductase AdvReac Mild leg cramps Verified 07/05/24 13:39 Inhibitor [Xmecfbp-Nvl-Txu Reductase Inhibitor] pregabalin [From Lyrica] AdvReac Verified 09/12/24 13:39 Objective Narrative: Physical Exam: General: Alert and oriented x3, no acute distress, pleasant and cooperative Lungs: Respirations even and unlabored, symmetrical chest expansion Eyes: PERRL Musculoskeletal: Flexion and extension of lumbar [spine] somewhat guarded secondary to pain, positive leg raise Neurological: Speech clear, no gross sensory deficit Additional findings Additional findings: FINDINGS: Multiplanar MR imaging of the lumbar spine was performed without contrast. On the sagittal T2-weighted images, disc degeneration is seen at L4-5. The vertebral alignment is normal. There is no evidence of fracture. No bony mass is identified. The conus has an unremarkable appearance. T12-L1: Unremarkable. L1-2: An annular bulge is present. There is no significant canal stenosis or neural foraminal narrowing. L2-3: An annular bulge is present. There is no significant canal stenosis or neural foraminal narrowing. L3-4: An annular bulge is present. There is no significant canal stenosis or neural foraminal narrowing. L4-5: An annular bulge is present. A small left paracentral disc protrusion indents the thecal sac and causes left L5 nerve root impingement. Mild right and moderate left neural foraminal narrowing is seen. L5-S1: There is partial sacralization of L5. There is no significant canal stenosis or neural foraminal narrowing. IMPRESSION: Multilevel degenerative disc disease and spondylosis as described. Left paracentral L4-5 disc protrusion with left L5 nerve root impingement and moderate left neural foraminal narrowing. Authenticated and [facility] Assessment and Plan *Assessment and plan (1) Degenerative disc disease, lumbar: Status: Acute Category: Medical Code(s): M51.369 - Other intervertebral disc degeneration, lumbar region without mention of lumbar back pain or lower extremity pain (2) Lumbar radiculopathy: Status: Acute Category: Medical Code(s): M54.16 - Radiculopathy, lumbar region Plan Patient is experiencing worsening pain in his low back and legs with numbness and tingling. Patient did have limited range of motion of his lumbar spine with a positive leg raise. I did discuss with the patient that I do believe he would benefit from a lumbar epidural steroid injection at L4-L5. Risk and benefits were discussed with the patient and he would like to proceed forward with this plan of care. Patient has tried and failed conservative treatment including continued at home stretching exercise for longer than 12 weeks and is currently in physical therapy. Patient does have significant narrowing with nerve root impingement at the L4-L5 level. We will submit to insurance for an LESI L4-L5 under fluoroscopy. Patient has been instructed to contact the clinic with any concerns before the next appointment. Dr. Dominique has reviewed this note and agrees with this plan of care. This note was dictated using voice recognition software and make contain errors or omissions. All injections are used with Lidocaine or Bupivacaine and Depo Medrol.
[2024-09-03 11:34] VITALS: BP 148/98; PULSE 90; RESP 18; O2SAT 99; BMI 30.9
== END 2024-09-03 23:59 | disposition home or self-care (01) ==
LOC: SC.PAIN 10:42
PROVIDERS: PCP Nurse Practitioner Family; Visit Provider Nurse Practitioner Family
DX: M51.16 Intervertebral disc disorders with radiculopathy, lumbar region (principal); Z87.891 Personal history of nicotine dependence; Z79.85 Long-term (current) use of injectable non-insulin antidiabetic drugs; Z79.84 Long term (current) use of oral hypoglycemic drugs
CPT/HCPCS: 99202; G0463

== ENCOUNTER 2024-09-18 10:00 | Outpatient (RCR) | payer MEDICARE, MEDICAID, SELFPAY | END 2024-10-11 09:37 | disposition home or self-care (01) | LOC: PT 10:00 | PROVIDERS: Visit Provider Nurse Practitioner Family | DX: M54.17 Radiculopathy, lumbosacral region (principal) | CPT/HCPCS: 97014; 97110; 97140; 97163; G0283 ==

== ENCOUNTER 2024-09-18 11:59 | Outpatient (CLI) | payer MEDICARE, MEDICAID, SELFPAY ==
[2024-09-18 12:59] VITALS: BMI 33.0
[2024-09-18 13:18] LABS: Basophils # 0.1 K/mm3 (0-0.2); Basophils % 1.6 % (0.1-2.0); Eosinophils # 0.2 K/mm3 (0.0-0.4); Eosinophils % 2.1 % (0.1-12.0); Hematocrit 43.7 % (42.0-52.0); Hemoglobin 15.5 g/dL (14.1-18.0); Lymphocytes # 2.7 K/mm3 (0.7-4.5); Lymphocytes % 34.9 % (10-50); Mean Corpuscular HGB Conc 35.5 g/dL (31.8-35.4); Mean Corpuscular Volume 84.5 fl (80-94); Monocytes # 0.5 K/mm3 (0.1-1.0); Monocytes % 5.7 % (1.7-9.3); Neutrophils # 4.4 K/mm3 (1.8-7.8); Neutrophils % 55.7 % (37.0-80.0); Platelet Count 267 K/mm3 (142-424); Red Blood Count 5.18 M/mm3 (4.60-6.20); Red Cell Distribution Width 14.2 % (11.5-17.5); White Blood Count 7.8 K/mm3 (4.8-10.8)
[2024-09-18 13:34] LABS: Chloride 99 mmol/L (98-107); Sodium 136 mmol/L (136-145)
[2024-09-18 13:37] LABS: Blood Urea Nitrogen 13 mg/dl (9-20); Carbon Dioxide 27 mmol/L (22.0-30.0); Creatinine Clearance Estimated 174 mL/min (50-200); Estimated Glomerular Filt Rate 105 ml/min (>60); GFR (African American) 127 ML/MIN (>60); Glucose 181 mg/dl (74-100)
== END 2024-09-18 23:59 | disposition home or self-care (01) ==
LOC: PREOP 12:00
PROVIDERS: Nurse Anesthetist, Certified Registered; PCP Nurse Practitioner Family; Visit Provider Orthopaedic Surgery
DX: I25.10 Atherosclerotic heart disease of native coronary artery without angina pectoris (principal)
CPT/HCPCS: 80048; 85025

== ENCOUNTER 2024-09-26 06:18 | Day surgery (SDC) | payer MEDICARE, MEDICAID, SELFPAY ==
[2024-09-18 12:41] VITALS: BMI 33.0
[2024-09-26] VITALS (10 sets, daily range): BP systolic 110–146; BP diastolic 67–88; PULSE 85–97; RESP 16; TEMP 35.8–36.7; O2SAT 93–96
[2024-09-26] MEDS: LACTATED RINGERS 1000ML 1,000 ML 100 ML IV (07:08)
[2024-09-26 07:13] LABS: POC Glucose,Bedside 186 (70-110)
--- NOTE | 2024-09-26 07:22 | P.PNANES_ITS ---
[facility] Disclaimer: The information contained in this section may have been updated after the patient was seen, as this information can be updated by other users. Medical History Implantable loop recorder present Implantable loop recorder present Right inguinal hernia Carotid artery stenosis Diabetes mellitus Hypertensive heart disease Hyperlipidemia Surgical History History of hernia surgery History of dental surgery H/O heart artery stent Family History Other Family history of COPD (chronic obstructive pulmonary disease) Family history of myocardial infarction Social History (Updated 09/26/24 @ 06:48 by Opal Govea RN) Smoking Status: Former smoker tobacco type: smokeless tobacco second hand exposure: No alcohol intake: never substance use type: denies use current occupational status: disabled Travel in the last 8 weeks: None household members: spouse and children housing: house current occupational exposures/hazards: No caffeine: Yes [facility] Anesthesia Checklist Patient Identification Patient Identification: Arm Band Structural Data Admitted From: Home Planned Operative Procedure/s: Left Cubital Tunnel Release Consent for Planned Operative Procedure(s) Verified: Yes Verified Documents: Surgical Consent and History and Physical NPO Status Verified Time NPO: 00:00 Additional verifications Anesthesia Reactions: No Hx Blood Transfusions: No Blood Transfusion Reaction: No Airway Assessment Mallampati Score:: Class II C-Spine Mobility Assessed: Yes TMJ Mobility Assessed: Yes Dentition: Edentulous Neurological Assessment Level of Consciousness: Awake, Alert and Appropriate Anesthesia Plan Anesthesia Risk discussed: Yes Anesthesia Plan: Verified ASA Class: III Anesthesia Type: General
[2024-09-26] MEDS: CEFAZOLIN SODIUM 2 GM in 0.9 % SODIUM CHLORIDE 100 ML IV (08:24)
[2024-09-26] MEDS: BUPIVACAINE 0.5% 30ML VIAL 150 MG (08:51)
--- NOTE | 2024-09-26 09:35 | P.OP_ITS ---
Date of procedure: 09/26/24 Pre-op Diagnosis:: Left cubital tunnel syndrome Post-op Diagnosis:: Same Procedure performed:: Ulnar nerve decompression left elbow Surgeon:: Jose Manuel Stout DO Sr. Manager Marketing(s):: Jarek LU TRANSMISSION SUPERVISOR:: Liliane Rivera Anesthesia: GETA Estimated blood loss (mL): 0 Operative findings:: See dictation Operative note:: Patient identified preoperatively. Left elbow marked with yes my initials. Transported operative suite. Placed upon operating bed. General anesthesia was administered and airway secured. Left upper extremity was then prepped and tristian ped with a hand table. Once prepped and draped final operative timeout performed to identify proper patient procedure and extremity. Everyone involved the case agreed. There is no counter indications beginning. He did receive preoperative antibiotics. Marking pen was used to rosetta plan incision over the cubital tunnel and medial elbow. Esmarch was used to exsanguinate the extremity pneumatic tourniquet inflated to 250 mmHg. Skin knife was used incise the skin and subcutaneous tissue. Dissection with the scissors were taken down dissection was taken down immediately to the cubital tunnel. Small albert was made in the cubital tunnel and dissection was meticulously taken to expose the ulnar nerve at the cubital tunnel. Then I progressively released the ulnar nerve along its path distally through the intermuscular septum. This gave good full release of the ulnar nerve distally. Attention was then brought back to the cubital tunnel and dissection was repeated proximally up into the arcade of [place]. The nerve was fully decompressed. The nerve was reactive with light touch. Normal and contour and color. Irrigation of the wound performed. Deeper layers closed with 3-0 Vicryl 3-0 nylon the skin for closure sterile dressing placed patient waken anesthesia taken recovery stable condition. Condition: stable Disposition: PACU Complications:: None apparent
--- NOTE | 2024-09-26 09:57 | P.PNANES_ITS ---
[facility] Anesthesia Record Part I Anesthesia Record I Intake, IV Amount: 600 Hydration: Adequate Estimated blood loss (mL): 10 Urine output (mL): 0 Blood Products used (#): none Blood Pressure: 116/78 SaO2: 94 Pulse Rate: 87 Airway Patency: Patent Respiratory Rate: 16 Temperature: 96.5 F Patient is:: Drowsy and Oral/Nasal airway (9.[address] upon arrival to PACU. Removed at 0959) Stable to PACU at:: 09:56
[2024-09-26 10:09] LABS: POC Glucose,Bedside 209 (70-110)
--- NOTE | 2024-09-27 08:03 | EXP.ANES.II ---
[facility] Anesthesia Record Part II Anesthesia Record Part II Discharge Time: 10:29 Destination: Surgical Day Care (OP Surgery) PACU nurse assessment reviewed?: Yes Patient Condition:: Good Anesthesia Complications:: None Swallowing reflex intact?: Yes Airway Patency: Patent Cyanosis?: No Blood Pressure: 120/68 SaO2: 96 Respiratory Rate: 16 Pulse Rate: 87 Temperature: 97.5 F Mental Status: Alert & Oriented Pain level:: 0 Nausea and/or vomitting:: None Intake, IV Amount: 600 Hydration: Adequate
[2024-09-27 08:04] VITALS: BP 120/68; PULSE 87; RESP 16; TEMP 36.4; O2SAT 96
== END 2024-09-26 11:01 | disposition home or self-care (01) ==
PROVIDERS: PCP Nurse Practitioner Family; Visit Provider Orthopaedic Surgery
PROC: (CPT 64718; principal; 2024-09-26 08:15)
DX: G56.22 Lesion of ulnar nerve, left upper limb (principal); E11.9 Type 2 diabetes mellitus without complications; Z79.85 Long-term (current) use of injectable non-insulin antidiabetic drugs
CPT/HCPCS: 64718; 82962; 96374; C9144; J0690; J1100; J1885; J2250; J2405; J3010; J7120

== ENCOUNTER 2024-10-02 10:36 | Day surgery (SDC) | payer MEDICARE, MEDICAID, SELFPAY ==
[2024-10-02 10:54] VITALS: BP 142/89; PULSE 88; RESP 16; TEMP 36.3; O2SAT 98; BMI 31.8
[2024-10-02] MEDS: LIDOCAINE 1% 5ML PF VIAL 5 ML (11:10)
[2024-10-02] MEDS: BUPIVACAINE 0.25% 10ML INJ 25 MG IJ (11:10)
[2024-10-02] MEDS: methylPREDNISolone ACETATE 80MG/ML VIAL 80 MG (11:10)
[2024-10-02 11:12] VITALS: BP 167/92; PULSE 86; RESP 18; O2SAT 98
[2024-10-02 11:17] VITALS: BP 167/92; PULSE 86; RESP 18; O2SAT 98
--- NOTE | 2024-10-02 11:21 | P.PCN_ITS ---
Procedure Date: 10/02/24 Time: 11:10 Anesthesiologist:: Ney Lacy CRNA Complications:: None Pre-procedure Diagnosis:: Degenerative disc lumbar spine multilevels. Lumbar radiculopathy. Lumbar disc bulge L4-5 Post-procedure Diagnosis:: Same. Indications for Procedure:: Patient is a pleasant 44-year-old male who comes our clinic today for a lumbar epidural steroid injection at the L4-5 level. Patient has disc bulge at the L4- 5 level. Patient describes low lumbar back pain as well as bilateral hip and leg radicular symptoms at times. He rates his pain 7/10. Procedure Details:: Procedure: Lumbar epidural steroid injection under fluoroscopy Informed consent was obtained and the risks and benefits of the procedure were explained to the patient. The patient was taken to the procedure room and noninvasive monitors placed, including noninvasive blood pressure cuff and pulse oximeter. The back was viewed using C-arm Fluoroscopy and prepped using Chloraprep as a cleansing solution and the L4-L5 interspace was palpated. Skin and subcutaneous tissues were anesthetized using lidocaine 1.5% and a 25-gauge needle. After this, an 18-gauge Touhy epidural needle was placed into the L4-L5 interspace and advanced using fluoroscopic guidance and loss of resistance to air until the epidural space was encountered. After confirmation of needle placement in the epidural space, with dye, a solution containing normal saline, 3 mL and Depo-Medrol 80 mg were incrementally injected into the lumbar epidural space. The patient tolerated the procedure well with no complications. The patient was observed in the Pain Clinic and then discharged home neurologically intact. Plan and Disposition:: Patient was discharged without incident.
[2024-10-02 11:33] VITALS: BP 163/91; PULSE 87; RESP 16; TEMP 36.4; O2SAT 98
== END 2024-10-02 11:33 | disposition home or self-care (01) ==
PROVIDERS: PCP Nurse Practitioner Family; Visit Provider Nurse Anesthetist, Certified Registered
DX: M51.16 Intervertebral disc disorders with radiculopathy, lumbar region (principal)
CPT/HCPCS: 62323; J1010

== ENCOUNTER 2024-10-26 14:15 | Outpatient (POV) | payer MEDICARE, MEDICAID, SELFPAY ==
[2024-10-26 14:55] VITALS: BP 121/70; PULSE 78; RESP 16; TEMP 36.4; O2SAT 98; BMI 30.9
--- NOTE | 2024-10-26 15:22 | EXP.PAIN.SOA ---
[facility] Disclaimer: The information contained in this section may have been updated after the patient was seen, as this information can be updated by other users. Medical History Implantable loop recorder present Implantable loop recorder present Right inguinal hernia Carotid artery stenosis Diabetes mellitus Hypertensive heart disease Hyperlipidemia Surgical History History of hernia surgery History of dental surgery H/O heart artery stent Family History Other Family history of COPD (chronic obstructive pulmonary disease) Family history of myocardial infarction Social History Smoking Status: Former smoker tobacco type: smokeless tobacco second hand exposure: No alcohol intake: never substance use type: denies use current occupational status: other Travel in the last 8 weeks: None household members: spouse and children housing: house current occupational exposures/hazards: No caffeine: Yes PM Subjective & Objective Subjective Subjective:: Patient is a pleasant 44-year-old male who presents today for follow-up of his lumbar epidural steroid injection L4-L5 on 10/02/2024. Today he rates his pain a 3 out of 10. He does state that he is at least had 50% improvement following these injection and feels like it is still helping some. He states that it really did provide improvement to where the pain is not as severe and not as constant. Patient does state the last week he has noticed a little bit more increased pain but it is still manageable. His Edmar has been reviewed and is appropriate. Review of Systems: General: No recent weight changes, no fever, no sleep disturbances Respiratory: No cough, no shortness of air, no recurring pulmonary infections Cardiovascular/peripheral vascular: No chest pain, no palpitations, no edema, no shortness of breath Gastrointestinal: No new onset incontinence, normal bowel movements reported Genitourinary: No new onset incontinence Musculoskeletal: Low back pain Psychiatric: [Normal mood/affect] Neurological: [Denies weakness in extremities], [denies balance issues] Pain at rest (0-10 scale): 3 Objective Objective:: Physical Exam: General: Alert and oriented x3, no acute distress, pleasant and cooperative Lungs: Respirations even and unlabored, symmetrical chest expansion Eyes: PERRL Musculoskeletal: Flexion and extension of lumbar [spine] somewhat guarded secondary to pain, [antalgic gait noted] Neurological: Speech clear, no gross sensory deficit Has patient had previous pain injection?: Yes Percent improvement in pain since last injection: 50% Conservative treatment options previously tried: Home exercise plan Length of treatment: Longer than 12 weeks Meds Home Medications and Allergies Home Medications ?Medication ?Instructions ?Recorded ?Confirmed ?Type aspirin 81 mg tablet,delayed 81 mg PO DAILY #30 tabs 08/16/23 10/26/24 Rx release sildenafil 100 mg tablet 100 mg PO NEEDED PRN * 09/09/23 10/26/24 History ezetimibe 10 mg tablet 10 mg PO DIRECTED Cholesterol 11/23/23 10/26/24 History empagliflozin 25 mg tablet 25 mg PO DAILY 02/07/24 10/26/24 History (Jardiance) gabapentin 600 mg tablet 600 mg PO HS 02/07/24 10/26/24 History semaglutide 1 mg/dose (4 mg/3 mL) 1 mg SQ QWEEK 07/05/24 10/26/24 History subcutaneous pen injector (Ozempic) hydrocodone 5 mg-acetaminophen 325 1 tab PO Q4H PRN post op pain #24 09/26/24 10/26/24 Rx mg tablet tabs New Prescriptions to Start Prescriptions: Allergies Allergy/AdvReac Type Severity Reaction Status Date / Time ramelteon (From Rozerem) Allergy Severe Trouble Verified 10/11/24 09:46 breathing morphine Allergy Unknown itching Verified 10/11/24 09:46 evolocumab (From Repatha AdvReac Mild myalgia Verified 10/11/24 09:46 SureClick) Ufkgjff-AOI-WtF Reductase AdvReac Mild leg cramps Verified 10/11/24 09:46 Inhibitor (Xeqnqxl-Ydx-Ttt Reductase Inhibitor) pregabalin (From Lyrica) AdvReac Confusion Verified 10/11/24 09:46 Assessment and Plan *Assessment and plan (1) Lumbar radiculopathy: Status: Acute Category: Medical Code(s): M54.16 - Radiculopathy, lumbar region (2) Degenerative disc disease, lumbar: Status: Acute Category: Medical Code(s): M51.369 - Other intervertebral disc degeneration, lumbar region without mention of lumbar back pain or lower extremity pain Plan Patient has had significant improvement following his lumbar epidural and does not require any additional interventions at this time. I will order him a compounded cream. Patient will return to clinic in 6 weeks for reevaluation of symptoms and plan of care. Patient has been instructed to contact the clinic with any concerns before the next appointment. Dr. Dominique has reviewed this note and agrees with this plan of care. This note was dictated using voice recognition software and make contain errors or omissions. All injections are used with Lidocaine, Bupivacaine and Depo Medrol. Occasionally urine drug screen is needed to verify patient's compliance with our office pain contract. This is ordered based off specific treatments related to chronic pain with the potential to abuse certain medications.
== END 2024-10-26 23:59 | disposition home or self-care (01) ==
LOC: SC.PAIN 14:16
PROVIDERS: PCP Nurse Practitioner Family; Visit Provider Nurse Practitioner Family
DX: M51.16 Intervertebral disc disorders with radiculopathy, lumbar region (principal); F17.220 Nicotine dependence, chewing tobacco, uncomplicated; Z79.85 Long-term (current) use of injectable non-insulin antidiabetic drugs
CPT/HCPCS: 99212; G0463